=== PATIENT | female | born 1940 | race Caucasian/White ===

== ENCOUNTER 2019-04-25 13:42 | Outpatient (CLI) | payer MEDICARE, OTHER ==
--- NOTE | 2019-04-25 14:47 | MMO ---
Bilateral MAMMO Bilat Diag [facility]. CLINICAL HISTORY: Patient is 78 years old and is seen for diagnostic exam. The patient has no family history of breast cancer. The patient has no personal history of cancer. VIEWS: The views performed were: bilateral craniocaudal with tomosynthesis; bilateral mediolateral oblique with tomosynthesis; and bilateral mediolateral with tomosynthesis. FILMS COMPARED: The present examination has been compared to prior imaging studies performed at [facility] on 05/12/2016, 05/15/2016, 11/10/2016 and 04/25/2019. This study has been interpreted with the assistance of computer-aided detection. MAMMOGRAM FINDINGS: There is a stable area of architectural distortion measuring 5 millimeters seen in the left breast at 11 o'clock. In the right breast, there are no suspicious masses, calcifications or areas of architectural distortion. IMPRESSION: STABLE AREA OF ARCHITECTURAL DISTORTION IN THE LEFT BREAST IS SUSPICIOUS. BIOPSY IS RECOMMENDED. THE RESULTS OF THIS EXAM WERE SENT TO THE PATIENT. ACR BI-RADS Category 4 - Suspicious abnormality - biopsy should be considered MAMMOGRAPHY NOTE: 1. A negative mammogram report should not delay a biopsy if a dominant of clinically suspicious mass is present. 2. Approximately 10% to 15% of breast cancers are not detected by mammography. 3. Adenosis and dense breasts may obscure an underlying neoplasm. Reported by: YG GILES MD Electonically Signed: [id number]
--- NOTE | 2019-04-25 15:46 | ULT ---
FOCUSED ULTRASOUND OF THE LEFT BREAST: DATE: 04/25/2019. COMPARISON: None. HISTORY: Focal area of architectural distortion noted in the left breast at the 11 o'clock position on diagnos tic mammography. FINDINGS: Focused ultrasound of the left breast at the 11 o'clock position demonstrates a very subtle ill-defin ed persistent focal area of abnormal hypodensity with shadowing. It is difficult to measure this are a secondary to its subtle nature. It probably measures in the 5 mm range. This is felt to likely co rrelate with the mammographic finding. IMPRESSION: BIRADS 4 - Suspicious abnormality. Subtle focal hypoechoic lesion noted at the 11 o'clock position o f the left breast. Recommend consideration for ultrasound-guided core biopsy. Suspicious finding and recommendation for biopsy discussed with the patient at 2:35 p.m. 04/25/2019. CODE CR POS: OFF
== END 2019-04-25 13:43 | disposition home or self-care (01) ==
LOC: BICMAMMO 13:42
PROVIDERS: ATTEND Family Medicine
DX: R92.8 Other abnormal and inconclusive findings on diagnostic imaging of breast (principal); Q83.9 Congenital malformation of breast, unspecified; N64.89 Other specified disorders of breast
CPT/HCPCS: 76642; 77066; G0279

== ENCOUNTER 2021-07-29 10:07 | Observation (INO) | payer MEDICARE, OTHER ==
[2021-07-29 10:52] LABS: #Basophils 0.1 thou/uL (0.0-0.2); #Eosinphils 0.5 thou/uL (0.0-0.7); #Monocytes 0.5 thou/uL (0.11-0.59); %Basophils 1.1 % (0.0-1.0); %Eosinophils 6.2 % (0.0-10.0); %Lymphocytes 24.9 % (21.0-51.0); %Monocytes 6.2 % (0.0-10.0); %Neutrophils 61.7 % (42.0-75.0); Hemoglobin 13.8 g/dL (12.0-16.0); Mean Corpuscular HGB CONC 33.2 g/dL (32.0-36.0); Mean Corpuscular Hemoglobin 31.7 pg (27.0-31.0); Mean Corpuscular Volume 95.4 fL (78.0-98.0); Mean Platelet Volume 9.3 fL (7.4-10.4); Platelet Count 194 thou/uL (130-400); Red Blood Cell (RBC) Count 4.37 mill/uL (4.20-5.40); White Blood Cell (WBC) Count 8.1 thou/uL (4.8-10.8)
[2021-07-29 11:03] LABS: ALT (SGPT) 19 U/L (8-55); AST (SGOT) 24 U/L (5-34); Albumin 4.2 g/dL (3.4-4.8); Alkaline Phosphatase 84 U/L (40-110); Anion Gap 14 mmol/L (10-20); BUN (Urea Nitrogen) 13 mg/dL (9.8-20.1); Bilirubin, Total 0.8 mg/dL (0.2-1.2); Calc. Creatinine Clearance 0 mL/min (70-130); Calcium 9.2 mg/dL (7.8-10.44); Carbon Dioxide 22 mmol/L (23-31); Chloride 103 mmol/L (98-107); Globulin 3.5 g/dL (2.4-3.5); Glucose 113 mg/dL (83-110); Lipase 26 U/L (8-78); Potassium 4.4 mmol/L (3.5-5.1); Protein, Total 7.7 g/dL (5.8-8.1); Sodium 135 mmol/L (136-145)
[2021-07-29] MEDS ORDERED: Ondansetron PF 4 MG/2 ML Vial ONE (11:38)
[2021-07-29] MEDS ORDERED: Ondansetron PF 4 MG/2 ML Vial IVP PRN (13:43)
[2021-07-29] MEDS ORDERED: Ondansetron ODT 4 MG TAB PO PRN (13:43)
[2021-07-29] MEDS ORDERED: Calcium Carbonate 500 MG ChewTAB PO PRN (13:57)
[2021-07-29] MEDS ORDERED: hydrALAZINE 20 MG/ML VIAL SLOW IVP PRN (14:04)
[2021-07-29 15:04] VITALS: BMI 30.4
[2021-07-29 16:26] LABS: Hemoglobin A1c 5.9 % (4.0-6.0)
[2021-07-29 16:28] LABS: Cardiac Risk 4.2 (Less than 4.5); Cholesterol 217 mg/dl (< 200 Desired); HDL Cholesterol 52 mg/dL (>60 Neg Risk); LDL Cholesterol, Calculated 149 mg/dL; Magnesium 2.1 mg/dL (1.6-2.6); Triglycerides 80 mg/dL (Less than 150)
[2021-07-29 16:31] LABS: Troponin I 0.026 ng/mL (< 0.028)
[2021-07-29 18:34] LABS: Troponin I 0.027 ng/mL (< 0.028)
[2021-07-29 21:02] LABS: Troponin I 0.026 ng/mL (< 0.028)
[2021-07-29 23:10] LABS: SARS-CoV-2 PCR by NAA Not Detected (NotDetected)
[2021-07-30] MEDS ORDERED: Levothyroxine Sodium 50 MCG TAB PO SCH (06:00)
[2021-07-30] MEDS ORDERED: Losartan 25 MG TAB PO SCH (09:00)
[2021-07-30] MEDS ORDERED: Hydrochlorothiazide 25 MG TAB PO SCH ×2 (09:00)
[2021-07-30 11:29] VITALS: BP 151/69; TEMP 98
[2021-07-31] MEDS ORDERED: Levothyroxine Sodium 25 MCG TAB PO SCH (06:00)
== END 2021-07-30 12:04 | disposition home or self-care (01) ==
LOC: ERS 10:07 → 2SW 13:01
PROVIDERS: ADMIT Student in an Organized Health Care Education/Training Program; ATTEND Student in an Organized Health Care Education/Training Program
DX: I16.0 Hypertensive urgency (principal); R07.89 Other chest pain; R01.1 Cardiac murmur, unspecified; E03.9 Hypothyroidism, unspecified; R00.2 Palpitations; R11.2 Nausea with vomiting, unspecified; I11.9 Hypertensive heart disease without heart failure; I08.3 Combined rheumatic disorders of mitral, aortic and tricuspid valves; Z66 Do not resuscitate; Z91.14 Patient's other noncompliance with medication regimen; Z79.899 Other long term (current) drug therapy; Z88.8 Allergy status to other drugs, medicaments and biological substances; Z91.041 Radiographic dye allergy status; Z20.822 Contact with and (suspected) exposure to COVID-19
CPT/HCPCS: 70450; 71045; 80061; 83036; 83690; 83735; 84484 ×2; 93005; 93306; 96374; 99285; U0003; U0005; 36415; 80053; 84443; 85025; G0378; J2405

== ENCOUNTER 2021-10-14 12:21 | Emergency (ER) | payer MEDICARE, OTHER ==
[2021-10-14] MEDS ORDERED: Acetaminophen 500 MG TAB ONE ×2 (14:54)
== END 2021-10-14 17:14 | disposition home or self-care (01) ==
LOC: ERS 12:21
DX: S52.121A Displaced fracture of head of right radius, initial encounter for closed fracture (principal); S02.2XXA Fracture of nasal bones, initial encounter for closed fracture; S52.131A Displaced fracture of neck of right radius, initial encounter for closed fracture; I10 Essential (primary) hypertension; E03.9 Hypothyroidism, unspecified; W18.39XA Other fall on same level, initial encounter; Z79.899 Other long term (current) drug therapy
CPT/HCPCS: 24620; 70486

== ENCOUNTER 2021-10-22 10:34 | Outpatient (CLI) | payer MEDICARE, OTHER ==
[2021-10-22 11:43] LABS: Anion Gap 18 mmol/L (10-20); BUN (Urea Nitrogen) 17 mg/dL (9.8-20.1); Calc. Creatinine Clearance 0 mL/min (70-130); Calcium 9.9 mg/dL (7.8-10.44); Carbon Dioxide 24 mmol/L (23-31); Chloride 99 mmol/L (98-107); Estimated GFR 62; Glucose 103 mg/dL (83-110); Potassium 4.4 mmol/L (3.5-5.1); Sodium 137 mmol/L (136-145)
== END 2021-10-22 10:35 | disposition home or self-care (01) ==
LOC: LABBT 10:34
PROVIDERS: ATTEND Orthopaedic Surgery
DX: Z01.812 Encounter for preprocedural laboratory examination (principal); Z20.822 Contact with and (suspected) exposure to COVID-19
CPT/HCPCS: 80048; 87811

== ENCOUNTER 2021-10-25 05:48 | Day surgery (SDC) | payer MEDICARE, OTHER ==
[2021-10-25] MEDS ORDERED: fentaNYL Citrate/PF 100 MCG/2 ML SYRINGE ONE (06:02)
[2021-10-25] MEDS ORDERED: Bupivacaine PF 0.5% 30 ML VIAL ONE (07:00)
[2021-10-25] MEDS ORDERED: EPINEPHrine 1 MG/ML AMP ONE (07:00)
[2021-10-25] MEDS ORDERED: Sodium Chloride 0.9% 100 ML ONE (07:14)
[2021-10-25] MEDS ORDERED: CEFAZOLIN 2 GM VIAL ONE (07:14)
[2021-10-25] MEDS ORDERED: Ondansetron PF 4 MG/2 ML Vial ONE (07:40)
[2021-10-25] MEDS ORDERED: Ketorolac Tromethamine 30 MG/ML VIAL ONE (07:40)
[2021-10-25] MEDS ORDERED: PROPOFOL 200 MG/20 ML VIAL ONE (07:40)
[2021-10-25] MEDS ORDERED: Dexamethasone 20 MG/5 ML VIAL ONE (07:40)
[2021-10-25] MEDS ORDERED: Fentanyl 100 MCG/2 ML VIAL ONE (09:28)
[2021-10-25] MEDS ORDERED: HYDROcodone/Acetaminophen 5/325 mg Tablet ONE (10:35)
== END 2021-10-25 11:20 | disposition home or self-care (01) ==
LOC: SDC 05:48
PROVIDERS: ATTEND Orthopaedic Surgery
PROC: 0PRH0JZ Replacement of Right Radius with Synthetic Substitute, Open Approach (ICD-10-PCS; principal; 2021-10-25)
PROC: 0PSK04Z Reposition Right Ulna with Internal Fixation Device, Open Approach (ICD-10-PCS; 2021-10-25)
PROC: 0HBCXZZ Excision of Left Upper Arm Skin, External Approach (ICD-10-PCS; 2021-10-25)
DX: S52.121A Displaced fracture of head of right radius, initial encounter for closed fracture (principal); S52.021A Displaced fracture of olecranon process without intraarticular extension of right ulna, initial encounter for closed fracture; L91.8 Other hypertrophic disorders of the skin; I10 Essential (primary) hypertension; Z79.890 Hormone replacement therapy; Z79.899 Other long term (current) drug therapy; Z88.6 Allergy status to analgesic agent; Z91.013 Allergy to seafood; Z91.041 Radiographic dye allergy status; W17.89XA Other fall from one level to another, initial encounter
CPT/HCPCS: 11200; 24666; 24685; 73070; 76000; C1713 ×3; C1776 ×2; C1874; 88305; J0171; J0690; J1100; J1885; J2405; J2704; J3010; J3490; S0020

== ENCOUNTER 2022-05-10 21:14 | Inpatient (IN) | payer MEDICARE, OTHER ==
[2022-05-10] MEDS ORDERED: Labetalol HCl 100 MG/20 ML VIAL ONE (22:38)
[2022-05-10] MEDS ORDERED: Ondansetron PF 4 MG/2 ML Vial ONE (22:38)
[2022-05-10 23:27] LABS: #Basophils 0.1 thou/uL (0.0-0.2); #Eosinphils 0.2 thou/uL (0.0-0.7); #Lymphocytes 1.5 thou/uL (1.20-3.40); #Monocytes 0.6 thou/uL (0.11-0.59); #Neutrophils 8.5 thou/uL (1.40-6.50); %Basophils 0.5 % (0.0-1.0); %Eosinophils 1.9 % (0.0-10.0); %Lymphocytes 13.9 % (21.0-51.0); %Monocytes 5.4 % (0.0-10.0); %Neutrophils 78.3 % (42.0-75.0); Hemoglobin 14.3 g/dL (12.0-16.0); Mean Corpuscular HGB CONC 33.1 g/dL (32.0-36.0); Mean Corpuscular Hemoglobin 31.3 pg (27.0-31.0); Mean Corpuscular Volume 94.6 fl (78.0-98.0); Mean Platelet Volume 10.1 fL (7.4-10.4); Platelet Count 155 10x3/uL (130-400); Red Blood Cell (RBC) Count 4.56 mill/uL (4.20-5.40); White Blood Cell (WBC) Count 10.9 10x3/uL (4.8-10.8)
[2022-05-10] MEDS ORDERED: niCARdipine 25 MG/10 ML VIAL ONE (23:27)
[2022-05-10] MEDS ORDERED: diphenhydrAMINE 50 MG/ML VIAL ONE (23:36)
[2022-05-10] MEDS ORDERED: Metoclopramide HCl 10 MG/2 ML VIAL ONE (23:36)
[2022-05-10 23:49] LABS: ALT (SGPT) 19 U/L (8-55); AST (SGOT) 20 U/L (5-34); Albumin 4.1 g/dL (3.4-4.8); Alkaline Phosphatase 81 U/L (40-110); Anion Gap 17 mmol/L (10-20); BUN (Urea Nitrogen) 15 mg/dL (9.8-20.1); Bilirubin, Total 0.7 mg/dL (0.2-1.2); Calc. Creatinine Clearance 0 mL/min (70-130); Calcium 9.6 mg/dL (7.8-10.44); Carbon Dioxide 19 mmol/L (23-31); Chloride 102 mmol/L (98-107); Estimated GFR 67; Globulin 3.5 g/dL (2.4-3.5); Glucose 128 mg/dL (83-110); Potassium 4.1 mmol/L (3.5-5.1); Protein, Total 7.6 g/dL (5.8-8.1); Sodium 134 mmol/L (136-145)
[2022-05-11] MEDS ORDERED: Ondansetron ODT 4 MG TAB PO PRN (00:29)
[2022-05-11] MEDS ORDERED: Acetaminophen 325 MG TAB PO PRN (00:29)
[2022-05-11 00:31] LABS: SARS-CoV-2 NAA Rapid Test Not Detected (NotDetected)
[2022-05-11 01:15] VITALS: BMI 29.2
[2022-05-11] MEDS ORDERED: niCARdipine 25 MG in Sodium Chloride 0.9% 250 ML 250 ML IVPB SCH (01:45)
[2022-05-11 03:34] LABS: #Lymphocytes 1.1 thou/uL (1.20-3.40); #Monocytes 0.3 thou/uL (0.11-0.59); %Basophils 0.3 % (0.0-1.0); %Eosinophils 0.2 % (0.0-10.0); %Lymphocytes 10.6 % (21.0-51.0); %Monocytes 2.6 % (0.0-10.0); %Neutrophils 86.3 % (42.0-75.0); Hemoglobin 14.7 g/dL (12.0-16.0); Mean Corpuscular HGB CONC 33.4 g/dL (32.0-36.0); Mean Corpuscular Hemoglobin 31.8 pg (27.0-31.0); Mean Corpuscular Volume 95.1 fl (78.0-98.0); Platelet Count 180 10x3/uL (130-400); Red Blood Cell (RBC) Count 4.61 mill/uL (4.20-5.40); White Blood Cell (WBC) Count 10.4 10x3/uL (4.8-10.8)
[2022-05-11 03:47] LABS: ALT (SGPT) 19 U/L (8-55); AST (SGOT) 20 U/L (5-34); Albumin 4.3 g/dL (3.4-4.8); Alkaline Phosphatase 79 U/L (40-110); Anion Gap 20 mmol/L (10-20); BUN (Urea Nitrogen) 13 mg/dL (9.8-20.1); Bilirubin, Total 0.8 mg/dL (0.2-1.2); Calc. Creatinine Clearance 60 mL/min (70-130); Calcium 9.6 mg/dL (7.8-10.44); Carbon Dioxide 20 mmol/L (23-31); Chloride 102 mmol/L (98-107); Estimated GFR 66; Globulin 3.7 g/dL (2.4-3.5); Glucose 146 mg/dL (83-110); Potassium 4.2 mmol/L (3.5-5.1); Sodium 138 mmol/L (136-145)
[2022-05-11 04:40] LABS: Troponin I 0.364 ng/mL (< 0.028)
[2022-05-11] MEDS: Levothyroxine Sodium 25 MCG TAB PO SCH (05:36)
[2022-05-11 06:38] LABS: Troponin I 0.176 ng/mL (< 0.028)
[2022-05-11] MEDS ORDERED: Calcium Carbonate 500 MG ChewTAB PO PRN (07:09)
[2022-05-11] MEDS ORDERED: hydrALAZINE 20 MG/ML VIAL SLOW IVP PRN (07:22)
[2022-05-11] MEDS: Losartan 25 MG TAB PO SCH (07:31)
[2022-05-11] MEDS: Famotidine 20 MG TAB PO SCH ×2 (07:31→19:38)
[2022-05-11] MEDS: Amlodipine 5 MG TAB PO SCH (07:32)
[2022-05-11] MEDS: Lactated Ringer's 1,000 ML IV SCH ×2 (07:33→16:30)
[2022-05-11 07:43] LABS: Hemoglobin A1c 5.3 % (4.0-6.0)
[2022-05-11 07:57] LABS: Cardiac Risk 3.8 (Less than 4.5)
[2022-05-11 11:30] LABS: Troponin I 0.264 ng/mL (< 0.028)
[2022-05-12] MEDS: Lactated Ringer's 1,000 ML IV SCH ×2 (01:30→09:43)
[2022-05-12 06:04] LABS: #Basophils 0.1 thou/uL (0.0-0.2); #Eosinphils 0.7 thou/uL (0.0-0.7); #Lymphocytes 2.3 thou/uL (1.20-3.40); #Monocytes 0.6 thou/uL (0.11-0.59); #Neutrophils 4.6 thou/uL (1.40-6.50); %Basophils 0.7 % (0.0-1.0); %Eosinophils 8.9 % (0.0-10.0); %Lymphocytes 28.1 % (21.0-51.0); %Neutrophils 55.4 % (42.0-75.0); Hemoglobin 13.3 g/dL (12.0-16.0); Mean Corpuscular HGB CONC 33.2 g/dL (32.0-36.0); Mean Corpuscular Hemoglobin 31.8 pg (27.0-31.0); Mean Platelet Volume 10.1 fL (7.4-10.4); Platelet Count 165 10x3/uL (130-400); RBC Distribution Width 12.1 % (11.5-14.5); Red Blood Cell (RBC) Count 4.17 mill/uL (4.20-5.40); White Blood Cell (WBC) Count 8.2 10x3/uL (4.8-10.8)
[2022-05-12] MEDS: Levothyroxine Sodium 25 MCG TAB PO SCH (06:28)
[2022-05-12 06:36] LABS: ALT (SGPT) 14 U/L (8-55); AST (SGOT) 16 U/L (5-34); Albumin 3.5 g/dL (3.4-4.8); Alkaline Phosphatase 64 U/L (40-110); Anion Gap 14 mmol/L (10-20); BUN (Urea Nitrogen) 17 mg/dL (9.8-20.1); Bilirubin, Total 1.3 mg/dL (0.2-1.2); Calc. Creatinine Clearance 66 mL/min (70-130); Calcium 9.2 mg/dL (7.8-10.44); Carbon Dioxide 22 mmol/L (23-31); Chloride 105 mmol/L (98-107); Estimated GFR 74; Glucose 92 mg/dL (83-110); Potassium 4.4 mmol/L (3.5-5.1); Protein, Total 6.5 g/dL (5.8-8.1); Sodium 137 mmol/L (136-145)
[2022-05-12] MEDS: Amlodipine 5 MG TAB PO SCH (08:19)
[2022-05-12] MEDS: Losartan 25 MG TAB PO SCH (08:19)
[2022-05-12 08:20] VITALS: BP 188/84
[2022-05-12] MEDS: Famotidine 20 MG TAB PO SCH (09:42)
[2022-05-12 09:53] VITALS: TEMP 97.8
== END 2022-05-12 12:20 | disposition home or self-care (01) | DRG 281 ==
LOC: ERS 21:14 → CCU 23:38
PROVIDERS: ADMIT Student in an Organized Health Care Education/Training Program; ATTEND Student in an Organized Health Care Education/Training Program
DX: I16.1 Hypertensive emergency (principal); I21.A1 Myocardial infarction type 2; A69.20 Lyme disease, unspecified; E72.12 Methylenetetrahydrofolate reductase deficiency; E72.11 Homocystinuria; Z20.822 Contact with and (suspected) exposure to COVID-19; E03.9 Hypothyroidism, unspecified; I10 Essential (primary) hypertension; K21.9 Gastro-esophageal reflux disease without esophagitis; I08.3 Combined rheumatic disorders of mitral, aortic and tricuspid valves; G47.33 Obstructive sleep apnea (adult) (pediatric); Z91.041 Radiographic dye allergy status; Z91.013 Allergy to seafood; Z88.8 Allergy status to other drugs, medicaments and biological substances; Z91.018 Allergy to other foods; Z79.899 Other long term (current) drug therapy; Z79.890 Hormone replacement therapy
CPT/HCPCS: 36415; 70450; 80053; 80061; 83036; 84443; 84484; 85025; 93005; 93010; J1200; J1650; J2405; J2765; J7120; U0002